=== PATIENT | female | born 1960 | race African-American/Black ===

== ENCOUNTER 2019-02-23 23:57 | Inpatient (IN) | payer MEDICARE, MEDICAID ==
[~2019-02-23] VITALS: Ht 167.6 cm; Wt 90.7 kg
[2019-02-24] MEDS ORDERED: KETOROLAC 30MG/ML VIAL IV STA (00:28)
[2019-02-24] MEDS ORDERED: SODIUM CHLORIDE 0.9% 1,000 ML IV ONE (00:28)
[2019-02-24 01:00] LABS: BASOPHILS % 0.9 % (0.0-2.0); EOSINOPHILS % 4.5 % (0.0-5.0); HEMATOCRIT. 35.2 % (36.0-48.0); HEMOGLOBIN. 11.7 g/dL (12.0-16.0); LYMPHOCYTES % 16.3 % (20.0-50.0); MEAN CORPUSCULAR HEMOGLOBIN 30.4 pg (28.0-32.0); MEAN CORPUSCULAR VOLUME 91.5 fL (81.0-99.0); MEAN PLATELET VOLUME 8.2 fl (7.4-10.4); MONOCYTES % 5.7 % (2.0-8.0); NEUTROPHILS % 72.6 % (40.0-76.0); PLATELET 317 x1000/uL (130-400); RED BLOOD CELL COUNT 3.84 mill/uL (4.2-5.4); RED CELL DISTRIBUTION WIDTH 13.9 % (11.6-14.6)
[2019-02-24 01:06] LABS: CHLORIDE 103 mEq/L (98-107)
[2019-02-24] MEDS ORDERED: POTASSIUM CHLORIDE 20MEQ TABLET SR PO SCH (04:01)
[2019-02-24] MEDS ORDERED: ACETAMINOPHEN 650MG/20.3ML UDC PO PRN (05:30)
[2019-02-24] MEDS ORDERED: CLONIDINE 0.1MG TABLET PO PRN (05:30)
[2019-02-24] MEDS ORDERED: HYDR25TA PO (05:38)
[2019-02-24] MEDS ORDERED: LEVO25TA7 PO (05:38)
[2019-02-24] MEDS ORDERED: GABA-531 PO (05:38)
[2019-02-24 05:48] VITALS: BP 154/81
[2019-02-24 08:00] VITALS: BP 143/68
[2019-02-24] MEDS: HYDROCODONE/ACETAMINOPHEN 5/325MG TABLET PO PRN ×2 (10:06→14:31)
[2019-02-24 11:58] LABS: BASOPHILS % 0.8 % (0.0-2.0); EOSINOPHILS % 2.5 % (0.0-5.0); HEMATOCRIT. 33.6 % (36.0-48.0); HEMOGLOBIN. 11.2 g/dL (12.0-16.0); LYMPHOCYTES % 18.1 % (20.0-50.0); MEAN CORPUSCULAR HEMOGLOBIN 30.5 pg (28.0-32.0); MEAN CORPUSCULAR VOLUME 91.6 fL (81.0-99.0); MEAN PLATELET VOLUME 8.5 fl (7.4-10.4); MONOCYTES % 6.5 % (2.0-8.0); NEUTROPHILS % 72.1 % (40.0-76.0); PLATELET 302 x1000/uL (130-400); RED BLOOD CELL COUNT 3.67 mill/uL (4.2-5.4); RED CELL DISTRIBUTION WIDTH 13.8 % (11.6-14.6)
[2019-02-24 12:00] VITALS: BP 154/86
[2019-02-24 12:12] LABS: CHLORIDE 103 mEq/L (98-107)
[2019-02-24] MEDS ORDERED: IOHEXOL-300 100 ML BOTTLE ONE (12:17)
[2019-02-24 12:19] LABS: LDL CHOLESTEROL 97 mg/dL (5-100)
[2019-02-24 12:24] LABS: HDL CHOLESTEROL 41 mg/dL (40-59)
[2019-02-24] MEDS ORDERED: LEVOTHYROXINE SODIUM 25MCG TABLET PO SCH (14:00)
[2019-02-24] MEDS ORDERED: HYDROCHLOROTHIAZIDE 25MG TABLET PO SCH (14:15)
[2019-02-24] MEDS ORDERED: NICOTINE 21MG PATCH TD SCH (14:15)
[2019-02-24 14:31] VITALS: BP 125/86
== END 2019-02-24 14:45 | disposition left against medical advice (07) | DRG 392 ==
LOC: ER 23:57 → ENRESERV 02-24 04:45 → 6EST 02-24 05:47
PROVIDERS: ADMIT Internal Medicine; ATTEND Internal Medicine
DX: R19.00 Intra-abdominal and pelvic swelling, mass and lump, unspecified site (principal); I10 Essential (primary) hypertension; G89.4 Chronic pain syndrome; F17.210 Nicotine dependence, cigarettes, uncomplicated; D64.9 Anemia, unspecified; E03.9 Hypothyroidism, unspecified; M48.00 Spinal stenosis, site unspecified; D72.829 Elevated white blood cell count, unspecified; Z53.21 Procedure and treatment not carried out due to patient leaving prior to being seen by health care provider
CPT/HCPCS: 36415; 71045; 74176; 74177; 76705; 80061; 83605; 84443; 93971; 99285; J1885; J7030; Q9967